=== PATIENT | female | born 1990 | race Caucasian/White ===

== ENCOUNTER 2017-04-11 08:00 | Outpatient (CLI) | payer OTHER | END 2017-04-11 08:01 | disposition home or self-care (01) | LOC: BICULT 08:00 | PROVIDERS: ATTEND Urology | DX: N20.0 Calculus of kidney (principal); N28.89 Other specified disorders of kidney and ureter | CPT/HCPCS: 36415; 76770; 80048; 81001; 87086 ==

== ENCOUNTER 2017-05-20 14:12 | Emergency (ER) | payer OTHER ==
[2017-05-20] MEDS ORDERED: Bupivacaine 0.5% 10 ML VIAL ONE (15:20)
[2017-05-20] MEDS ORDERED: Metoclopramide HCl 10 MG/2 ML VIAL ONE (15:20)
[2017-05-20] MEDS ORDERED: diphenhydrAMINE 50 MG/ML VIAL ONE (15:20)
[2017-05-20] MEDS ORDERED: Acetaminophen 500 MG TAB ONE (15:20)
[2017-05-20 16:25] LABS: Bilirubin Negative (Negative); Blood, Urine Negative (Negative); Clarity CLOUDY (Clear); Glucose, Urine (Dipstick) Negative (Negative); Leukocyte Large (Negative); Nitrite Negative (Negative); Protein, Urine (Dipstick) Negative (Neg-Trace); Specific Gravity, Urine 1.018 (1.002-1.036); Urobilinogen 0.2 mg/dL (0.2-1.0)
[2017-05-20 16:27] LABS: Bacteria/HPF 4+ HPF (None Seen); RBC/HPF 0-3 HPF (0-3)
[2017-05-20 16:29] LABS: Pathc Cast-AUWi Flag 2.57 (0-2.49)
[2017-05-20 16:36] LABS: Hyaline Casts/LPF NONE SEEN LPF (0-3 Hyaline); Other Casts/LPF None Seen LPF (0-3 Hyaline)
== END 2017-05-20 16:35 | disposition home or self-care (01) ==
LOC: ERS 14:12
DX: O99.351 Diseases of the nervous system complicating pregnancy, first trimester (principal); G43.909 Migraine, unspecified, not intractable, without status migrainosus; Z3A.12 12 weeks gestation of pregnancy; Z79.899 Other long term (current) drug therapy
CPT/HCPCS: 81003; 81015; 96365; 96375; J1200; J2765; J3490

== ENCOUNTER 2017-07-25 09:22 | Outpatient (CLI) | payer OTHER ==
--- NOTE | 2017-07-25 12:37 | ULT ---
ULTRASOUND RETROPERITONEUM COMPLETE: (RENAL) DATE: 07/25/17. HISTORY: A 27-year-old female with calculus of kidney, N20.0. COMPARISON: No prior renal ultrasounds. FINDINGS: There is moderate dilation of the entire right renal collecting system. There is no dilation of the contralateral left renal collecting system. The right kidney measures 13.5 x 6 x 6 cm. The left kidney measures 11 x 5.5 x 5.5 cm. Several tiny echogenic foci in the bilateral renal collecting systems are questionable for bilateral tiny renal calculi. Prevoid bladder volume is only 13 mL. Postvoid residual is 2 mL. The degree of right hydronephrosis is similar to prior CT of 02/04/2015. IMPRESSION: moderate right hydronephrosis. JN R ADDENDUM: The exam is reviewed with Dr. Mccormick. The dilated right renal pelvis is a chronic finding in this patient, and comparison is made to an IVP of 04/19/2015, which shows a mildly dilated renal pelvis with calyceal blunting on the right. Bilateral ureteral jets were demonstrated and confirmed on images at this exam. These findings were discussed with Dr. Mccormick. CODE CR POS: DESHAWN
== END 2017-07-25 09:23 | disposition home or self-care (01) ==
LOC: ULT 09:22
PROVIDERS: ATTEND Urology
DX: N20.0 Calculus of kidney (principal); N13.30 Unspecified hydronephrosis
CPT/HCPCS: 76770; 81001; 87086

== ENCOUNTER 2017-11-11 13:30 | Day surgery (SDC) | payer OTHER ==
[2017-11-11 14:18] VITALS: BMI 196.3
[2017-11-11 14:19] VITALS: BP 122/72; TEMP 98.7
--- NOTE | 2017-11-11 23:22 | SS ---
DATE OF EVALUATION: 11/11/2017 LABOR AND DELIVERY TRIAGE NOTE REGULAR PHYSICIAN: Yvonne Azevedo MD at [facility]. EVALUATING PHYSICIAN: Ignacio Lee MD CHIEF COMPLAINT: Pelvic pressure with spotting at home. HISTORY OF PRESENT ILLNESS: Ms. Johns is a 27-year-old white G3, P1, AB1, estimated date of confin ement 12/03/2017, who presents complaining of a small amount of spotting with pelvic pressure at home noted this afternoon. She reports active movement and denies ruptured membranes or vaginal bl eeding. Her care has been with Dr. Azevedo at [facility] and she states it has bee n uncomplicated. PAST OBSTETRICAL HISTORY: Includes one vaginal delivery at term and one early miscarriage. PAST MEDICAL HISTORY: Unremarkable. PAST SURGICAL HISTORY: Includes 3 procedures for ureterocele. CURRENT MEDICATIONS: vitamins. ALLERGIES: No known allergies. SOCIAL HISTORY: Denies tobacco, alcohol, or drug use. FAMILY HISTORY: Unremarkable. REVIEW OF SYSTEMS: She denies nausea, vomiting, fever, chills, rupture of membranes, or vaginal blee ding. PHYSICAL EXAMINATION: VITAL SIGNS: Stable. She is afebrile. GENERAL: She is very pleasant, in no apparent distress. ABDOMEN: Soft, nontender, and gravid. PELVIC: Shows the cervix to be 1 cm dilated, posterior, approximately 50% effaced. No blood is seen on the examining finger. heart rate tracing is stable with good [id number] variability and accelerations. No significant regular uterine contractions are seen. ASSESSMENT: 1. 36-6/7 week intrauterine . 2. No evidence of active labor at this time. PLAN: The patient will be discharged home with labor precautions. She has a followup appointment wi Dr. Azevedo this week. She was told to return with regular contractions, ruptured membranes, or h eavy vaginal bleeding. She voiced understanding of her discharge instructions and was sent home in g ood condition.
== END 2017-11-11 15:05 | disposition home health service (06) ==
LOC: L&D/OP 13:30
PROVIDERS: ATTEND Student in an Organized Health Care Education/Training Program
DX: O26.853 Spotting complicating pregnancy, third trimester (principal); O99.89 Other specified diseases and conditions complicating pregnancy, childbirth and the puerperium; R10.9 Unspecified abdominal pain; Z3A.36 36 weeks gestation of pregnancy
CPT/HCPCS: 99282

== ENCOUNTER 2018-04-04 07:32 | Outpatient (CLI) | payer OTHER ==
--- NOTE | 2018-04-04 11:12 | RAD ---
CT ABDOMEN AND PELVIS WITH AND WITHOUT CONTRAST: Technique: Multiple contiguous axial images were obtained through the abdomen and pelvis pre and post IV contrast administration. CT IVP was performed with IVP films obtained concurrently. Indications: Follow up ureterocele. Calculus of kidneys. Comparison: CT abdomen/pelvis 02-04-15, 12-19-14. Retrograde study 04-19-15. FINDINGS: Liver, spleen, pancreas, and adrenal glands unremarkable. There is mild right hydronephrosis with blunting of the right calices, best appreciated on overhead v iews. There are small nonobstructing calculi in the collecting structures of the right kidney. At elena st three calculi are seen with the largest measuring approximately 1 cm. Left kidney is unremarkable. There are tiny nonobstructing calculi in the lower pole collecting struc tures of the left kidney. At least two tiny calculi are seen measuring approximately 2 mm. The uterus appear normal caliber. The bladder is minimally distended on CT. Ureterocele is not appare nt on CT. Bowel loops unremarkable. Appendix normal. Images through the pelvis unremarkable with normal appearing uterus and adnexa. No adenopathy. Small umbilical hernia. IMPRESSION: 1. Mild right hydronephrosis with blunting of the right calices. 2. Nonobstructing calculi in the lower pole collecting structures of both kidneys. POS: MATHIEU
== END 2018-04-04 07:33 | disposition home or self-care (01) ==
LOC: SCSCT 07:32
PROVIDERS: ATTEND Urology
DX: Q62.31 Congenital ureterocele, orthotopic (principal); N20.0 Calculus of kidney; N13.30 Unspecified hydronephrosis
CPT/HCPCS: 74178; 74410

== ENCOUNTER 2018-05-16 00:47 | Outpatient (CLI) | payer OTHER ==
[2018-05-16 10:08] LABS: #Eosinphils 0.2 thou/uL (0.0-0.7); #Lymphocytes 1.5 thou/uL (1.20-3.40); #Monocytes 0.5 thou/uL (0.11-0.59); #Neutrophils 4.1 thou/uL (1.40-6.50); %Basophils 0.8 % (0.0-1.0); %Eosinophils 2.5 % (0.0-10.0); %Lymphocytes 23.5 % (21.0-51.0); %Monocytes 8.1 % (0.0-10.0); %Neutrophils 65.1 % (42.0-75.0); Mean Corpuscular HGB CONC 33.2 g/dL (32.0-36.0); Mean Corpuscular Hemoglobin 29.4 pg (27.0-31.0); Mean Corpuscular Volume 88.5 fL (78.0-98.0); Mean Platelet Volume 8.6 fL (7.4-10.4); Platelet Count 234 thou/uL (130-400); RBC Distribution Width 11.4 % (11.5-14.5); Red Blood Cell (RBC) Count 4.43 mill/uL (4.20-5.40); White Blood Cell (WBC) Count 6.3 thou/uL (4.8-10.8)
[2018-05-16 10:16] LABS: BHCG - Serum Negative (NEGATIVE); Pregs Control Background? CLEAR/WHITE (CLR/WHITE); Pregs Control Bar Appear? YES (CONTROL BAR)
[2018-05-16 10:32] LABS: Anion Gap 14 mmol/L (10-20); BUN (Urea Nitrogen) 14 mg/dL (7.0-18.7); Calc. Creatinine Clearance 0 mL/min (70-130); Calcium 10.2 mg/dL (7.8-10.44); Carbon Dioxide 25 mmol/L (22-29); Chloride 105 mmol/L (98-107); Estimated GFR-MDRD 83; Glucose 112 mg/dL (70-105); Potassium 3.8 mmol/L (3.5-5.1); Sodium 140 mmol/L (136-145)
== END 2018-05-16 00:48 | disposition home or self-care (01) ==
LOC: LABBT 00:47
PROVIDERS: ATTEND Surgery
DX: Z01.812 Encounter for preprocedural laboratory examination (principal); K42.9 Umbilical hernia without obstruction or gangrene
CPT/HCPCS: 80048; 84703; 85025

== ENCOUNTER 2018-05-17 09:58 | Day surgery (SDC) | payer OTHER ==
[2018-05-16 09:32] VITALS: BMI 28.3
[2018-05-17] MEDS ORDERED: Fentanyl 100 MCG/2 ML VIAL ONE ×2 (11:18→13:08)
[2018-05-17] MEDS ORDERED: Bupivacaine HCl 0.5%/Epinephrine 1:200,000/PF 30 ml Vial ONE (11:31)
[2018-05-17] MEDS ORDERED: Dexamethasone 20 MG/5 ML VIAL ONE (15:44)
[2018-05-17] MEDS ORDERED: Ondansetron PF 4 MG/2 ML Vial ONE (15:44)
[2018-05-17] MEDS ORDERED: Ketorolac Tromethamine 30 MG/ML VIAL ONE (15:44)
[2018-05-17] MEDS ORDERED: Lidocaine 1% PF 5 ML VIAL ONE (15:44)
[2018-05-17] MEDS ORDERED: PROPOFOL 200 MG/20 ML VIAL ONE (15:44)
--- NOTE | 2018-05-17 19:16 | OP ---
DATE OF PROCEDURE: 05/17/2018 POSTOPERATIVE DIAGNOSIS: Umbilical hernia. POSTOPERATIVE DIAGNOSIS: Umbilical hernia. PROCEDURE PERFORMED: Umbilical hernia repair with mesh, Ventralex ST small. ANESTHESIA: General. ESTIMATED BLOOD LOSS: Minimal. COMPLICATIONS: None. SPECIMEN: None. FINDINGS: Umbilical hernia. DESCRIPTION OF PROCEDURE: The patient was taken to the operating room and laid supine on the operating room table. After general anesthetic was obtained, the abdomen was prepped and draped in a sterile fashion. A curved incision was made below the umbilicus. Cautery was used to dissect down to and score the fascia. Abdominal cavity was entered bluntly using a Tabitha clamp. The edges of the hernia defect were freshened. The preperitoneal space was entered and bluntly dissected from the from the back side of the abdominal wall. The small Ventralex ST mesh was brought in a sterile field. The inlay was placed in preperitoneal spaces. Its fibers laid out flat against the posterior abdominal wall. The tails of the mesh were sewn laterally to the edge of the fascia. The tails were then cut at the level of fascia. The fascia was closed loosely over the mesh. The wound was irrigated. Local anesthetic was applied. The umbilical stalk was tacked back down using 3-0 Vicryl. The skin was closed with running 4-0 Monocryl and Dermabond. The patient was sent to Recovery in stable condition. All instrument counts, needle counts, and lap counts were correct. Job ID: [id number]
--- NOTE | 2018-05-20 09:18 | HP ---
HISTORY OF PRESENT ILLNESS: Elva Johns is a 27-year-old female, 2, para 2, status post recent delivery in November 2017. She is a vice chair. She is . She has noticed an umbilical hernia during her . It is bothersome to her. She desires repair. Our plan is mesh repair using robot surgery approach. Risks of infection, bleeding, reoperation, and recurrence were discussed, she consents. We will plan this as an outpatient. She understands she will avoid lifting over 25 to 30 pounds for 4 weeks postoperatively. ALLERGIES: NONE. SOCIAL HISTORY: Tobacco, none. Alcohol, rarely. MEDICATIONS: Oral contraceptives. PAST MEDICAL HISTORY: Urolithiasis. PAST SURGICAL HISTORY: Three different laser surgeries for urolithiasis, the fourth is scheduled with Dr. Jace padilla. REVIEW OF SYSTEMS: Ten-point noncontributory. FAMILY HISTORY: Noncontributory. PHYSICAL EXAMINATION: VITAL SIGNS: Weight 174 pounds, height 5 feet and 5 inches. Blood pressure 115/60, heart rate 76, and temperature 97.9 degrees. HEAD, EARS, EYES, NOSE, AND THROAT: Unremarkable. LUNGS: Clear to auscultation. CARDIAC: Regular rate and rhythm without murmur or gallop. ABDOMEN: Soft. Umbilical hernia with a 2.5 to 3 cm defect. EXTREMITIES: Unremarkable. NEUROLOGICAL: Intact without deficit. ASSESSMENT AND PLAN: Umbilical hernia. We will plan robot mesh repair as outpatient. She understands the risks and benefits as outlined above. Job ID: [id number]
== END 2018-05-17 14:55 | disposition home or self-care (01) ==
LOC: SDC 09:58
PROVIDERS: ATTEND Surgery
PROC: 0WUF0JZ Supplement Abdominal Wall with Synthetic Substitute, Open Approach (ICD-10-PCS; principal; 2018-05-17)
DX: K42.9 Umbilical hernia without obstruction or gangrene (principal); Z79.3 Long term (current) use of hormonal contraceptives; Z98.890 Other specified postprocedural states
CPT/HCPCS: J0670; J3010

== ENCOUNTER 2018-08-29 09:25 | Outpatient (CLI) | payer BC ==
--- NOTE | 2018-08-29 11:30 | RAD ---
SINGLE VIEW ABDOMEN: Date: 08/29/18 COMPARISON: 05/29/16. CT abdomen/pelvis dated 04/04/18. HISTORY: Renal calculus. FINDINGS: Anterior views of the abdomen show a nonspecific, nonobstructed bowel gas pattern. Small calcificatio ns project over the lower pole of the right kidney measuring up to 6 mm in size. No calcifications pr oject over the left renal shadow. No calcifications seen along the course of the ureters. IMPRESSION: Right nephrolithiasis. POS: TPC
== END 2018-08-29 09:26 | disposition home or self-care (01) ==
LOC: BICRAD 09:25
PROVIDERS: ATTEND Urology
DX: N20.0 Calculus of kidney (principal)
CPT/HCPCS: 36415; 74018; 80048; 81001; 87086

== ENCOUNTER 2020-01-09 11:36 | Emergency (ER) | payer OTHER ==
[2020-01-09 17:23] LABS: SARS-CoV-2 MS2 Positive; SARS-CoV-2 N Gene Positive; SARS-CoV-2 S Gene Positive; SARS-CoV-2 by NAA DETECTED (NotDetected); SARS-CoV-2 orf1ab Positive
== END 2020-01-09 12:24 | disposition home or self-care (01) ==
LOC: ERS 11:36
DX: U07.1 COVID-19 (principal); G43.909 Migraine, unspecified, not intractable, without status migrainosus
CPT/HCPCS: 87635; 87804; 99283; U0003

== ENCOUNTER 2020-09-29 08:27 | Outpatient (CLI) | payer OTHER | END 2020-09-29 08:28 | disposition home or self-care (01) | LOC: BICRAD 08:27 | PROVIDERS: ATTEND Urology | DX: N20.0 Calculus of kidney (principal) | CPT/HCPCS: 74018 ==

== ENCOUNTER 2021-04-05 09:30 | Outpatient (CLI) | payer BC | END 2021-04-05 09:31 | disposition home or self-care (01) | LOC: BICMAMMO 09:30 | PROVIDERS: ATTEND Physician Assistant | DX: N64.4 Mastodynia (principal); N63.10 Unspecified lump in the right breast, unspecified quadrant | CPT/HCPCS: 77066; G0279 ==

== ENCOUNTER 2022-03-01 08:54 | Outpatient (CLI) | payer OTHER | END 2022-03-01 08:55 | disposition home or self-care (01) | LOC: BICRAD 08:54 | PROVIDERS: ATTEND Urology | DX: N20.0 Calculus of kidney (principal); N28.89 Other specified disorders of kidney and ureter | CPT/HCPCS: 74018 ==

== ENCOUNTER 2023-05-14 08:11 | Outpatient (CLI) | payer BC | END 2023-05-14 08:12 | disposition home or self-care (01) | LOC: BICCT 08:11 | PROVIDERS: ATTEND Urology | DX: N20.0 Calculus of kidney (principal); N13.30 Unspecified hydronephrosis; Q62.31 Congenital ureterocele, orthotopic; K76.0 Fatty (change of) liver, not elsewhere classified | CPT/HCPCS: 74176 ==

== ENCOUNTER 2023-05-14 08:31 | Outpatient (CLI) | payer BC | END 2023-05-14 08:32 | disposition home or self-care (01) | LOC: BICMAMMO 08:31 | PROVIDERS: ATTEND Student in an Organized Health Care Education/Training Program | DX: R92.8 Other abnormal and inconclusive findings on diagnostic imaging of breast (principal); N63.12 Unspecified lump in the right breast, upper inner quadrant | CPT/HCPCS: 77066; G0279 ==